=== PATIENT | female | born 1985 | race Two or more races ===

== ENCOUNTER 2025-01-29 09:14 | Outpatient (CLI) | payer OTHER | END 2025-01-29 09:27 | disposition home or self-care (01) | LOC: PRENATAL 09:14 | PROVIDERS: ATTEND Obstetrics & Gynecology Maternal & Fetal Medicine | DX: O36.80X0 Pregnancy with inconclusive fetal viability, not applicable or unspecified (principal); Z36.82 Encounter for antenatal screening for nuchal translucency; Z14.8 Genetic carrier of other disease; O09.519 Supervision of elderly primigravida, unspecified trimester; O34.10 Maternal care for benign tumor of corpus uteri, unspecified trimester; Z3A.01 Less than 8 weeks gestation of pregnancy ==